=== PATIENT | male | born 1940 | race Caucasian/White ===

== ENCOUNTER → 2016-04-16 | Outpatient (CLI) | payer OTHER ==
[2016-04-16 14:09] LABS: Basophils # (auto) 0.1 uL; Basophils % (auto) 0.7 % (0.0-2.0); Eosinophils # (auto) 0.4 uL; Eosinophils % (auto) 5.2 % (0.0-7.0); Hematocrit 49.8 % (41.0-53.0); Hemoglobin 16.5 g/dL (13.5-17.5); Lymphocytes # (auto) 2.2 uL; Lymphocytes % (auto) 28.6 % (10.0-50.0); Monocytes # (auto) 0.9 uL; Monocytes % (auto) 11.1 % (0.0-12.0); Neutrophils # (auto) 4.2 uL; Neutrophils % (auto) 54.4 % (37.0-80.0); Platelet Count (auto) 242 10^3/uL (140-450); Red Cell Distribution Width 15.2 % (11.6-16.0); White Blood Cell 7.7 10^3/uL (4.4-10.8)
[2016-04-16 14:25] LABS: Albumin 3.7 g/dL (3.4-5.0); BUN/Creatinine Ratio 16.2; Bilirubin, Total 0.9 mg/dL (0.2-1.0); Calcium 8.9 mg/dL (8.5-10.1); Potassium 3.6 mmol/L (3.5-5.1); Total Protein 7.8 g/dL (6.4-8.2)
== END | disposition home or self-care (01) ==
LOC: LAB 13:14
DX: I10 Essential (primary) hypertension (principal); M25.50 Pain in unspecified joint; D64.9 Anemia, unspecified; M06.9 Rheumatoid arthritis, unspecified; Z79.899 Other long term (current) drug therapy
CPT/HCPCS: 36415; 80053; 85025; 85049; 85652; 86141

== ENCOUNTER → 2016-07-16 | Outpatient (CLI) | payer OTHER ==
[2016-07-16 10:09] LABS: Basophils # (auto) 0 uL; Basophils % (auto) 0.6 % (0.0-2.0); Eosinophils # (auto) 0.3 uL; Eosinophils % (auto) 3.9 % (0.0-7.0); Hematocrit 51.1 % (41.0-53.0); Lymphocytes # (auto) 2.2 uL; Lymphocytes % (auto) 27.3 % (10.0-50.0); Mean Corpuscular Hemoglobin 31.9 pg (28.0-32.0); Mean Corpuscular Hgb Conc. 33.2 g/dL (32.0-36.0); Mean Corpuscular Volume 96.3 fL (80.0-100.0); Mean Platelet Volume 8.6 fL (7.4-10.4); Monocytes # (auto) 0.8 uL; Monocytes % (auto) 9.5 % (0.0-12.0); Neutrophils # (auto) 4.7 uL; Neutrophils % (auto) 58.7 % (37.0-80.0); Platelet Count (auto) 266 10^3/uL (140-450); Red Cell Distribution Width 14.9 % (11.6-16.0)
[2016-07-16 10:14] LABS: Albumin 3.7 g/dL (3.4-5.0); BUN/Creatinine Ratio 21.9; Bilirubin, Total 0.8 mg/dL (0.2-1.0); Calcium 8.8 mg/dL (8.5-10.1); Potassium 3.3 mmol/L (3.5-5.1); Total Protein 7.8 g/dL (6.4-8.2)
== END | disposition home or self-care (01) ==
LOC: LAB 08:05
DX: I10 Essential (primary) hypertension (principal); M06.9 Rheumatoid arthritis, unspecified; M25.50 Pain in unspecified joint; D64.9 Anemia, unspecified; Z79.899 Other long term (current) drug therapy
CPT/HCPCS: 36415; 80053; 85025; 85652; 86141

== ENCOUNTER → 2016-10-02 | Outpatient (CLI) | payer OTHER ==
[2016-10-02 10:47] LABS: Basophils # (auto) 0 uL; Basophils % (auto) 0.4 % (0.0-2.0); CONDITION Y; Eosinophils # (auto) 0.3 uL; Eosinophils % (auto) 3.6 % (0.0-7.0); Hematocrit 53.3 % (41.0-53.0); Hemoglobin 17.9 g/dL (13.5-17.5); Lymphocytes % (auto) 25.4 % (10.0-50.0); Mean Corpuscular Hemoglobin 32.6 pg (28.0-32.0); Mean Corpuscular Hgb Conc. 33.7 g/dL (32.0-36.0); Mean Corpuscular Volume 96.8 fL (80.0-100.0); Mean Platelet Volume 7.9 fL (7.4-10.4); Monocytes # (auto) 0.6 uL; Monocytes % (auto) 8.4 % (0.0-12.0); Neutrophils # (auto) 4.8 uL; Neutrophils % (auto) 62.2 % (37.0-80.0); Platelet Count (auto) 233 10^3/uL (140-450); Red Cell Distribution Width 14.7 % (11.6-16.0); White Blood Cell 7.7 10^3/uL (4.4-10.8)
[2016-10-02 11:13] LABS: Albumin 3.5 g/dL (3.4-5.0); BUN/Creatinine Ratio 13.5; Bilirubin, Total 0.7 mg/dL (0.2-1.0); Calcium 8.4 mg/dL (8.5-10.1); Potassium 3.2 mmol/L (3.5-5.1); Total Protein 7.5 g/dL (6.4-8.2)
== END | disposition home or self-care (01) ==
LOC: LAB 10:31
DX: M06.9 Rheumatoid arthritis, unspecified (principal); M25.50 Pain in unspecified joint; D64.9 Anemia, unspecified; I10 Essential (primary) hypertension
CPT/HCPCS: 36415; 80053; 85025; 85652; 86141

== ENCOUNTER → 2016-10-08 | Outpatient (CLI) | payer OTHER ==
[2016-10-08 10:05] LABS: Basophils # (auto) 0.1 uL; Basophils % (auto) 0.7 % (0.0-2.0); CONDITION Y; Eosinophils # (auto) 0.3 uL; Eosinophils % (auto) 4.3 % (0.0-7.0); Hematocrit 49.2 % (41.0-53.0); Hemoglobin 16.7 g/dL (13.5-17.5); Lymphocytes # (auto) 2.4 uL; Lymphocytes % (auto) 32.7 % (10.0-50.0); Mean Corpuscular Hemoglobin 32.8 pg (28.0-32.0); Mean Corpuscular Hgb Conc. 33.9 g/dL (32.0-36.0); Mean Corpuscular Volume 96.7 fL (80.0-100.0); Monocytes # (auto) 0.7 uL; Neutrophils # (auto) 3.8 uL; Neutrophils % (auto) 52.3 % (37.0-80.0); Platelet Count (auto) 307 10^3/uL (140-450); Red Cell Distribution Width 14.8 % (11.6-16.0); White Blood Cell 7.3 10^3/uL (4.4-10.8)
[2016-10-08 10:09] LABS: Urine Bilirubin Negative (Negative); Urine Blood Negative /uL (Negative); Urine Color Yellow (Yellow); Urine Glucose Normal (Normal); Urine Ketone Negative (Negative); Urine Nitrite Negative (Negative); Urine RBC <1 /hpf (0 - 3); Urine Urobilinogen Normal (Negative)
[2016-10-08 10:47] LABS: Cholesterol 129 mg/dL (< 200); HDL Cholesterol 38 mg/dL (40-59); LDL Cholesterol 81 mg/dL (< 100); Triglycerides 134 mg/dL (< 150)
== END | disposition home or self-care (01) ==
LOC: LAB 08:41
PROVIDERS: ATTEND Internal Medicine
DX: I10 Essential (primary) hypertension (principal); E78.2 Mixed hyperlipidemia
CPT/HCPCS: 36415; 80061; 81001; 84153; 84443; 85025

== ENCOUNTER → 2017-01-06 | Outpatient (CLI) | payer OTHER ==
[2017-01-06 10:17] LABS: Basophils # (auto) 0 uL; Basophils % (auto) 0.9 % (0.0-2.0); Eosinophils # (auto) 0.3 uL; Eosinophils % (auto) 5.6 % (0.0-7.0); Hematocrit 48.6 % (41.0-53.0); Hemoglobin 16.7 g/dL (13.5-17.5); Lymphocytes # (auto) 1.4 uL; Lymphocytes % (auto) 26.4 % (10.0-50.0); Mean Corpuscular Hemoglobin 32.1 pg (28.0-32.0); Mean Corpuscular Hgb Conc. 34.5 g/dL (32.0-36.0); Mean Corpuscular Volume 93.3 fL (80.0-100.0); Mean Platelet Volume 7.5 fL (6.9-10.8); Monocytes # (auto) 0.5 uL; Monocytes % (auto) 9.4 % (0.0-12.0); Neutrophils # (auto) 3.2 uL; Neutrophils % (auto) 57.7 % (37.0-80.0); Nucleated Red Blood Cells % 0.2 %; Platelet Count (auto) 191 10^3/uL (140-450); Red Cell Distribution Width 13.5 % (11.8-14.3); White Blood Cell 5.5 10^3/uL (4.4-10.8)
[2017-01-06 10:46] LABS: Albumin 3.5 g/dL (3.4-5.0); BUN/Creatinine Ratio 14.7; Bilirubin, Total 0.7 mg/dL (0.2-1.0); Calcium 8.6 mg/dL (8.5-10.1); Potassium 3.3 mmol/L (3.5-5.1); Total Protein 7.4 g/dL (6.4-8.2)
== END | disposition home or self-care (01) ==
LOC: LAB 09:39
DX: I10 Essential (primary) hypertension (principal); I70.0 Atherosclerosis of aorta; E78.00 Pure hypercholesterolemia, unspecified; M06.9 Rheumatoid arthritis, unspecified; D64.9 Anemia, unspecified; M25.50 Pain in unspecified joint; Z79.899 Other long term (current) drug therapy
CPT/HCPCS: 36415; 80053; 85025; 85652; 86141

== ENCOUNTER → 2017-09-15 | Outpatient (CLI) | payer OTHER ==
[2017-09-15 10:55] LABS: Basophils # (auto) 0.1 uL; Basophils % (auto) 1.5 % (0.0-2.0); Eosinophils # (auto) 0.3 uL; Hematocrit 48.2 % (41.0-53.0); Hemoglobin 16.5 g/dL (13.5-17.5); Lymphocytes % (auto) 35.6 % (10.0-50.0); Mean Corpuscular Hemoglobin 31.6 pg (28.0-32.0); Mean Corpuscular Hgb Conc. 34.3 g/dL (32.0-36.0); Mean Corpuscular Volume 92.1 fL (80.0-100.0); Monocytes # (auto) 0.7 uL; Monocytes % (auto) 11.6 % (0.0-12.0); Neutrophils # (auto) 2.6 uL; Neutrophils % (auto) 46.3 % (37.0-80.0); Nucleated Red Blood Cells % 0.3 %; Platelet Count (auto) 197 10^3/uL (140-450); Red Blood Cells 5.23 10^6/uL (4.5-5.90); Red Cell Distribution Width 13.9 % (11.8-14.3); White Blood Cell 5.7 10^3/uL (4.4-10.8)
[2017-09-15 11:25] LABS: Albumin 3.5 g/dL (3.4-5.0); BUN/Creatinine Ratio 15.5; Bilirubin, Total 0.4 mg/dL (0.2-1.0); Calcium 8.7 mg/dL (8.5-10.1); Potassium 3.5 mmol/L (3.5-5.1); Total Protein 7.5 g/dL (6.4-8.2)
== END | disposition home or self-care (01) ==
LOC: LAB 10:01
PROVIDERS: ATTEND Physician Assistant
DX: I12.9 Hypertensive chronic kidney disease with stage 1 through stage 4 chronic kidney disease, or unspecified chronic kidney disease (principal); Z12.5 Encounter for screening for malignant neoplasm of prostate; E78.5 Hyperlipidemia, unspecified; N18.9 Chronic kidney disease, unspecified; E87.6 Hypokalemia; E78.00 Pure hypercholesterolemia, unspecified; M06.9 Rheumatoid arthritis, unspecified; Z79.899 Other long term (current) drug therapy
CPT/HCPCS: 36415; 80053; 80061; 83036; 84153; 85025

== ENCOUNTER → 2018-04-21 | Outpatient (CLI) | payer OTHER | END | disposition home or self-care (01) | LOC: XYW 10:22 | PROVIDERS: ATTEND Internal Medicine | DX: I07.1 Rheumatic tricuspid insufficiency (principal); I70.0 Atherosclerosis of aorta; I48.91 Unspecified atrial fibrillation | CPT/HCPCS: 93306 ==

== ENCOUNTER → 2018-04-27 | Outpatient (CLI) | payer OTHER ==
[~2018-04-27] VITALS: Ht 175.3 cm; Wt 115.7 kg
[~2018-04-27] MED LIST: ADENOSINE 97 MG in GIVE UN-DILUTED 0 ML IV STA
--- NOTE | 2018-04-27 09:13 | NUR ---
UPDATE UNABLE TO START STRESS TEST AT THIS TIME. BP 200s/100s mmHg, HR 130s ON A-FIB. CONSULTED DR OSUNA REGARDING BASELINE VS AND ECG, PER DR OSUNA TO HOLD OFF ON TEST UNTIL VS ARE MORE STABLE. PT STATES HE DID NOT TAKE HIS MORNING MEDICATIONS ADVISED BY CARDIOLOGY OFFICE. PT IS CALLING FAMILY MEMBER AT THIS TIME FOR DELIVERY OF MEDICATIONS TO THE HOSPITAL. THE POC IS FOR PT TO TAKE HOME MEDS AND RE-ASSESS VS WITHIN THE HOUR TO ATTEMPT TO RUN STRESS TEST FOR A SECOND TIME. WILL CONTINUE TO MONITOR CLOSELY.
[2018-04-27 10:52] VITALS: BP 151/105
== END | disposition home or self-care (01) ==
LOC: XY 07:07
PROVIDERS: ATTEND Internal Medicine
DX: I48.91 Unspecified atrial fibrillation (principal)
CPT/HCPCS: 78452; 93017; A9500; J0153

== ENCOUNTER → 2018-05-16 | Outpatient (CLI) | payer OTHER ==
[2018-05-16 09:56] LABS: Urine Bacteria NONE SEEN /hpf (None Seen); Urine Blood Negative /uL (Negative); Urine Mucus FEW (None Seen); Urine WBC 33 /hpf (0 - 3)
[2018-05-16 10:18] LABS: Albumin 3.8 g/dL (3.4-5.0); Calcium 9.2 mg/dL (8.5-10.1); Potassium 4.3 mmol/L (3.5-5.1)
[2018-05-16 10:26] LABS: BUN/Creatinine Ratio 9.8; Bilirubin, Total 0.8 mg/dL (0.2-1.0); CRP High Sensitivity 0.47 mg/dL (< 0.3); Total Protein 8.3 g/dL (6.4-8.2)
[2018-05-16 10:27] LABS: Free T4 (Free Thyroxine) 1.27 ng/dL (0.89-1.76); T3 Total 1.24 ng/mL (0.60-1.81)
[2018-05-16 10:34] LABS: Basophils # (auto) 0.1 uL; Eosinophils # (auto) 0.3 uL; Eosinophils % (auto) 4.6 % (0.0-7.0); Mean Corpuscular Hgb Conc. 34.3 g/dL (32.0-36.0); Monocytes # (auto) 0.8 uL; Neutrophils % (auto) 55.4 % (37.0-80.0); Nucleated Red Blood Cells % 0.5 %; White Blood Cell 7.3 10^3/uL (4.4-10.8)
[2018-05-16 10:36] LABS: Hematocrit 53.5 % (41.0-53.0); Hemoglobin 18.4 g/dL (13.5-17.5); Lymphocytes % (auto) 28.1 % (10.0-50.0); Mean Corpuscular Hemoglobin 31.9 pg (28.0-32.0); Mean Corpuscular Volume 93.2 fL (80.0-100.0); Monocytes % (auto) 10.9 % (0.0-12.0); Platelet Count (auto) 242 10^3/uL (140-450); Red Blood Cells 5.75 10^6/uL (4.5-5.90); Red Cell Distribution Width 14.2 % (11.8-14.3)
[2018-05-16 11:01] LABS: Prostate Specific Antigen 0.79 ng/mL (0.0-4.0)
== END | disposition home or self-care (01) ==
LOC: LAB 09:12
PROVIDERS: ATTEND Internal Medicine
DX: E11.22 Type 2 diabetes mellitus with diabetic chronic kidney disease (principal); E78.5 Hyperlipidemia, unspecified; N18.9 Chronic kidney disease, unspecified; E87.6 Hypokalemia
CPT/HCPCS: 36415; 80053; 80061; 81001; 82306; 82607; 84153; 84439; 84480; 85025; 86141

== ENCOUNTER 2018-07-06 08:58 | Inpatient (IN) | payer OTHER | END 2018-07-09 10:33 | disposition short-term general hospital (02) | LOC: CATH 08:58 → TELE-EAST 13:32 | PROC: B2111ZZ Fluoroscopy of Multiple Coronary Arteries using Low Osmolar Contrast (ICD-10-PCS; principal; ~2018-07-06) | PROC: 4A023N8 Measurement of Cardiac Sampling and Pressure, Bilateral, Percutaneous Approach (ICD-10-PCS; ~2018-07-06) | PROC: B2151ZZ Fluoroscopy of Left Heart using Low Osmolar Contrast (ICD-10-PCS; ~2018-07-06) | DX: I25.10 Atherosclerotic heart disease of native coronary artery without angina pectoris (principal) ==